=== PATIENT | female | born 1955 | race African-American/Black ===

== ENCOUNTER 2019-02-10 11:02 | Day surgery (SDC) | payer OTHER ==
[~2019-02-10] VITALS: Ht 162.6 cm; Wt 73.9 kg
[~2019-02-10 11:02] MED LIST: ARTIFICIAL TEAR1510 OPHTHALMIC; BENICAR40 MG PO; HAIR, SKIN & N1 EAC2 PO; IRON325 M1 PO; NORVASC 2.5 MG2.5 M1 PO; OMEPRAZOLE 20 M20 M1 PO; RESTASIS1 EACH OPHTHALMIC; VITAMIN D-32000 UNIT PO
[2019-02-10 13:27] VITALS: BP 157/67
--- NOTE | 2019-02-14 06:17 | O ---
[facility] [place] [address] OPERATIVE REPORT Name: INDER BOYLE Room #: DEP [facility].#: [id number] Admission: 02/10/19 Attend Phys: Mau Montaño MD Discharge: 02/10/19 Date of : 51 Report #: [id number] THIS REPORT FOR: //name// CC: William Montaño DATE OF SERVICE: 02/10/2019 SURGEON: Mau Montaño MD VENDOR ANALYST: None. PREOPERATIVE DIAGNOSIS: Right upper lid ptosis. POSTOPERATIVE DIAGNOSIS: Right upper lid ptosis. OPERATION PERFORMED: Right upper lid ptosis repair. ANESTHESIA: Local anesthesia with IV sedation. COMPLICATIONS: None. INDICATIONS FOR SURGERY: This patient has right upper lid ptosis with superior visual field loss. Visual field testing demonstrates dense superior visual defects. Retesting with the upper lid elevated shows an improvement in visual field loss of over 30% and in excess of 12 degrees. The current procedure is undertaken in order to improve the patient's visual function. Informed consent was obtained to include but not limited to the potential risks for bleeding, scarring, infection, loss of vision, failure to improve the problem, need for further surgery and need for adjustment of lid height. DESCRIPTION OF PROCEDURE: The patient was taken to the operating room, where a right upper lid crease was drawn with a skin marking pen. The incision was then made with Vandana scissors and dissected down to the orbital septum. Hemostasis was achieved with a monopolar cautery as it was throughout the case. The orbital septum was then entered and the preaponeurotic fat identified. The levator aponeurosis was then disinserted from the anterior surface of the tarsal plate and dissected free in the avascular Schreiber's muscle plane. The aponeurosis was then advanced onto the anterior surface of the tarsal plate and reattached with mattress double-arm 6-0 Novafil sutures, adjusting for height and contour. The redundant aponeurosis was then amputated. The upper lid crease was then reformed with interrupted 6-0 chromic sutures. The skin was closed with interrupted 6-0 plain gut suture. The wound was then cleaned and dressed with ophthalmic antibiotic ointment. [facility] [address] [place] [address] OPERATIVE REPORT Name: TAMARINDER MAE Room #: [facility]#: [id number] Admission: 02/10/19 Attend Phys: Mau Montaño MD Discharge: 02/10/19 Date of : 51 Report #: [id number] The patient was then transported to the recovery area, having tolerated the procedure well with no anesthesia or operative complications being noted. <ELECTRONICALLY SIGNED> By: Mau Montaño MD 02/14/19 0617 [id number] Mau Montaño MD /nt
== END 2019-02-10 15:02 | disposition home or self-care (01) ==
LOC: OR 11:02 → TBA 11:06 → OR 11:13
DX: Q10.0 Congenital ptosis (principal); I10 Essential (primary) hypertension; D64.9 Anemia, unspecified; K21.9 Gastro-esophageal reflux disease without esophagitis; Z98.890 Other specified postprocedural states; Z79.899 Other long term (current) drug therapy; Z90.710 Acquired absence of both cervix and uterus; Z91.040 Latex allergy status
CPT/HCPCS: 50010; 50101; 50386; 50398; 51636; 56528; 56531; 62110; 62850; 70005